=== PATIENT | male | born 1990 | race Caucasian/White ===

== ENCOUNTER → 2019-08-15 12:05 | Outpatient (BNVA) | payer OTHER, SELFPAY | PROVIDERS: Visit Provider Family Medicine | DX: R68.89 Other general symptoms and signs (principal); B34.2 Coronavirus infection, unspecified; J06.9 Acute upper respiratory infection, unspecified; Z20.828 Contact with and (suspected) exposure to other viral communicable diseases | CPT/HCPCS: 87635 ==

== ENCOUNTER → 2020-05-20 10:48 | Outpatient (BNVA) | payer OTHER, SELFPAY | PROVIDERS: Family Provider Orthopaedic Surgery Hand Surgery; Visit Provider Nurse Practitioner Family | DX: Z76.89 Persons encountering health services in other specified circumstances (principal) | CPT/HCPCS: 87635 ==

== ENCOUNTER → 2020-12-16 10:27 | Outpatient (BNVA) | payer OTHER, SELFPAY | PROVIDERS: Family Provider Orthopaedic Surgery Hand Surgery; Visit Provider Nurse Practitioner Family | DX: Z20.822 Contact with and (suspected) exposure to COVID-19 (principal) | CPT/HCPCS: 87635 ==

== ENCOUNTER → 2021-04-05 11:46 | Outpatient (BNVA) | payer OTHER, SELFPAY | PROVIDERS: Family Provider Orthopaedic Surgery Hand Surgery; Visit Provider Nurse Practitioner Family | DX: Z20.822 Contact with and (suspected) exposure to COVID-19 (principal) | CPT/HCPCS: 87635 ==

== ENCOUNTER → 2021-07-30 10:37 | Outpatient (BNVA) | payer SELFPAY | PROVIDERS: Family Provider Orthopaedic Surgery Hand Surgery; Visit Provider Nurse Practitioner Family | DX: Z20.822 Contact with and (suspected) exposure to COVID-19 (principal); J11.1 Influenza due to unidentified influenza virus with other respiratory manifestations | CPT/HCPCS: 87400; 87635 ==